=== PATIENT | female | born 1995 | race Two or more races ===

== ENCOUNTER 2017-05-15 09:26 | Emergency (ER) | payer OTHER ==
[~2017-05-15] VITALS: Ht 157.5 cm; Wt 5.0 kg
[2017-05-15 09:29] VITALS: BP 147/61
[2017-05-15] MEDS ORDERED: IBUPROFEN 600 MG TABLET PO ONE ×2 (09:44→10:00)
== END 2017-05-15 10:48 | disposition home or self-care (01) ==
LOC: ER 09:28
DX: R07.89 Other chest pain (principal)
CPT/HCPCS: 71045-TC; A4606; Z7610